=== PATIENT | male | born 1975 | race Caucasian/White ===

== ENCOUNTER 2017-07-05 02:13 | Inpatient (IN) | payer MEDICAID ==
[~2017-07-05] VITALS: Ht 198.1 cm; Wt 113.4 kg
[2017-07-05] MEDS ORDERED: SODIUM CHLORIDE 0.9% 1,000 ML IV ONE (02:54)
[2017-07-05] MEDS ORDERED: ONDANSETRON HCL 4MG/2ML VIAL IV STA (02:54)
[2017-07-05] MEDS ORDERED: NITROGLYCERIN OINT 1GM/INCH UDPKT TD ONE (03:00)
[2017-07-05] MEDS ORDERED: ASPIRIN 81MG TABLET PO ONE (03:00)
[2017-07-05 03:32] LABS: CHLORIDE 106 mEq/L (98-107)
[2017-07-05 03:34] LABS: BASOPHILS % 0.5 % (0.0-2.0); EOSINOPHILS % 1.6 % (0.0-5.0); HEMATOCRIT. 44.4 % (42.0-52.0); HEMOGLOBIN. 15.1 g/dL (14.0-18.0); LYMPHOCYTES % 33.4 % (20.0-50.0); MEAN CORPUSCULAR VOLUME 94.1 fL (80.0-94.0); NEUTROPHILS % 57.5 % (40.0-76.0); PLATELET 364 x1000/uL (130-400); RED BLOOD CELL COUNT 4.71 mill/uL (4.7-6.1); RED CELL DISTRIBUTION WIDTH 12.7 % (11.6-14.6)
[2017-07-05 03:36] LABS: ETHANOL BLOOD < 10 mg/dL
[2017-07-05 03:39] LABS: PROTHROMBIN TIME 10.5 sec (9.4-11.6)
[2017-07-05 04:35] LABS: CLARITY URINE CLEAR (CLEAR); COLOR URINE YELLOW (YELLOW); KETONES URINE NEGATIVE (NEGATIVE); LEUKOCYTE ESTERASE URINE NEGATIVE (NEGATIVE); NITRITE URINE NEGATIVE (NEGATIVE); OCCULT BLOOD URINE 1+ (NEGATIVE); PROTEIN URINE 1+ (NEGATIVE); SPECIFIC GRAVITY URINE 1.022 (1.005-1.030); UROBILINOGEN URINE 0.2 E.U./dL (0.2-1.0)
[2017-07-05 05:20] LABS: *AMPHETAMINES SCREEN URINE PRESUMTIVE POSITIVE (NEGATIVE); *BARBITURATES SCREEN URINE NEGATIVE (NEGATIVE); *BENZODIAZEPINES SCREEN URINE NEGATIVE (NEGATIVE)
[2017-07-05 05:21] LABS: *COCAINE SCREEN URINE PRESUMTIVE POSITIVE (NEGATIVE); CANNABINOID URINE SCREEN NEGATIVE (NEGATIVE); METHADONE URINE SCREEN NEGATIVE (NEGATIVE); OPIATES URINE SCREEN NEGATIVE (NEGATIVE); PHENCYCLIDINE URINE SCREEN NEGATIVE (NEGATIVE)
[2017-07-05] MEDS ORDERED: DOCUSATE SODIUM 100MG CAPSULE PO PRN (06:45)
[2017-07-05] MEDS ORDERED: HYDROCODONE/ACETAMINOPHEN 5/325MG TABLET PO PRN (06:45)
[2017-07-05] MEDS ORDERED: LORAZEPAM 2MG/ML CPJ IV PRN (06:45)
[2017-07-05] MEDS ORDERED: CLONIDINE 0.1MG TABLET PO PRN (06:45)
[2017-07-05] MEDS ORDERED: ONDANSETRON HCL 4MG/2ML VIAL IV PRN (06:45)
[2017-07-05] MEDS ORDERED: IPRATROPIUM/ALBUTEROL 0.5-3(2.5)MG/3ML NEB INH PRN (06:45)
[2017-07-05] MEDS ORDERED: ACETAMINOPHEN 325MG TABLET PO PRN (06:45)
[2017-07-05] MEDS ORDERED: NA PHOS,M-B/NA PHOS,DI-BA ENEMA 118ML PR PRN (06:45)
[2017-07-05] MEDS ORDERED: HYDROMORPHONE HCL/PF 2MG/ML CPJ IV PRN (06:45)
[2017-07-05] MEDS ORDERED: DIPHENHYDRAMINE 50MG/ML VIAL IV PRN (06:45)
[2017-07-05] MEDS ORDERED: MAGNESIUM/ALUMINUM HYDROXIDE/SIMETHICONE 30ML UDC PO PRN (06:45)
[2017-07-05] MEDS ORDERED: GUAIFENESIN 200MG/10ML SUGAR FREE UDC PO PRN (06:45)
[2017-07-05 07:23] LABS: CHLORIDE 107 mEq/L (98-107)
[2017-07-05 08:00] VITALS: BP 119/65
[2017-07-05 08:30] VITALS: BP 119/65
[2017-07-05] MEDS ORDERED: KCL 20MEQ/100ML PREMIX 50 ML IV SCH (10:00)
[2017-07-05 10:24] VITALS: BP 119/65
[2017-07-05 12:00] VITALS: BP 121/79
[2017-07-05] MEDS: ASPIRIN 81MG EC TABLET PO SCH (12:44)
[2017-07-05] MEDS: ENOXAPARIN 40MG/0.4ML SYR SUBCUT SCH (12:44)
[2017-07-05 16:00] VITALS: BP 122/62
[2017-07-05] MEDS ORDERED: DEXTROSE 50% WATER 50ML SYRINGE IV PRN (19:30)
[2017-07-05 20:00] VITALS: BP 108/60
[2017-07-05] MEDS: BLOOD SUGAR DIAGNOSTIC STRIP TEST SCH (21:27)
[2017-07-05] MEDS: INSULIN LISPRO 100 UNITS/ML SUBCUT SCH (21:30)
[2017-07-06] VITALS: BP 105/47
[2017-07-06 04:00] VITALS: BP 118/53
[2017-07-06] MEDS: BLOOD SUGAR DIAGNOSTIC STRIP TEST SCH (05:53)
[2017-07-06] MEDS: INSULIN LISPRO 100 UNITS/ML SUBCUT SCH (07:28)
[2017-07-06 07:40] LABS: BASOPHILS % 0.7 % (0.0-2.0); HEMATOCRIT. 43.2 % (42.0-52.0); HEMOGLOBIN. 14.8 g/dL (14.0-18.0); LYMPHOCYTES % 39.8 % (20.0-50.0); MEAN CORPUSCULAR HEMOGLOBIN 32.2 pg (28.0-32.0); MEAN CORPUSCULAR VOLUME 93.9 fL (80.0-94.0); MEAN PLATELET VOLUME 8.5 fl (7.4-10.4); MONOCYTES % 7.8 % (2.0-8.0); NEUTROPHILS % 49.7 % (40.0-76.0); PLATELET 302 x1000/uL (130-400); RED CELL DISTRIBUTION WIDTH 12.6 % (11.6-14.6)
[2017-07-06 08:00] VITALS: BP 118/59
[2017-07-06 08:38] LABS: CHLORIDE 107 mEq/L (98-107)
[2017-07-06 08:53] LABS: T4 FREE 0.83 ng/dL (0.76-1.46)
[2017-07-06 08:54] LABS: LDL CHOLESTEROL 97 mg/dL (5-100)
[2017-07-06 08:57] LABS: HDL CHOLESTEROL 37 mg/dL (40-59)
[2017-07-06] MEDS: ASPIRIN 81MG EC TABLET PO SCH (08:57)
[2017-07-06] MEDS: ENOXAPARIN 40MG/0.4ML SYR SUBCUT SCH (08:58)
[2017-07-06 10:35] VITALS: BP 149/89
== END 2017-07-06 11:03 | disposition home or self-care (01) | DRG 203 ==
LOC: ER 02:13 → 7WST 04:32 → ENRESERV 07:06
PROVIDERS: ADMIT Internal Medicine; ATTEND Internal Medicine
DX: M94.0 Chondrocostal junction syndrome [Tietze] (principal); E83.51 Hypocalcemia; I10 Essential (primary) hypertension; F14.10 Cocaine abuse, uncomplicated; E11.9 Type 2 diabetes mellitus without complications; E78.5 Hyperlipidemia, unspecified; E87.6 Hypokalemia; F10.10 Alcohol abuse, uncomplicated; F15.10 Other stimulant abuse, uncomplicated
CPT/HCPCS: 36415; 70450; 71045; 80048; 80053; 80061; 80305; 81003; 82962; 83605; 83690; 83880; 84439; 84443; 84484; 85025; 85610; 93005; 96361; 96374; 99285; G0482; J1650; J1815; J2405; J3480; J7030